=== PATIENT | female | born 1975 | race African-American/Black ===

== ENCOUNTER 2016-12-21 09:24 | Emergency (ER) | payer OTHER ==
[~2016-12-21] VITALS: Ht 162.6 cm; Wt 96.6 kg
--- NOTE | ~2016-12-21 | CT55 ---
[facility] A Service [facility] RADIOLOGY TEXT RESULTS PATIENT: ANGELITA GUTIERREZ LOCATION: [facility] : 71 UNIT #: [id number] AGE: [address]: Tressa Bhatia MD SEX: F ORDER DR: [id number] [place] [id number] [facility]. [place], [place] [address] [id number] E MR#: [id number] Acc #: [id number] NAME: ANGELITA GUTIERREZ. : 1975 SEX: F STUDY DATE/TIME: 12/21/2016 13:57 UNIT: [facility] ROOM: STUDY DESCRIPTION: CT Chest W Con Attending Physician: Tressa Bhatia M.D. Ordering Physician: Tressa Bhatia M.D. Primary Care Physician: No Primary Care Physician MEDICAL IMAGING REPORT This report is preliminary unless electronic signature is present EXAM CT chest with contrast HISTORY Back pain for 2 months with nausea TECHNIQUE The patient was given 100 cc of Isovue 370. Axial 5 mm images were obtained in the chest. This CT exam was performed with one or more of the following radiation dose reduction techniques: automatic exposure control, adjustment of mA and/or kV according to patient size, and iterative reconstruction. FINDINGS The visualized thyroid gland is normal. The aorta is normal in size. The heart is normal in size. There is no mediastinal or hilar adenopathy. The bones are unremarkable. The lungs are clear. IMPRESSION Normal CT scan of the chest with contrast. Dictated by... Hi Roy M.D. THIS IS AN ELECTRONICALLY VERIFIED REPORT Hi Roy M.D. at 12/22/2016 6:07 AM CHERYL/khadijah [facility] A [facility] RADIOLOGY TEXT RESULTS PATIENT: ANGELITA GUTIERREZ LOCATION: [facility] : 71 UNIT #: [id number] AGE: [address]: Tressa Bhatia MD SEX: F ORDER DR: TD: 12/21/2016 19:43 JOB #: [id number] MEDICAL IMAGING REPORT Page 1 of 1 COPY
--- NOTE | ~2016-12-21 | CT2 ---
[facility] A Service [facility] RADIOLOGY TEXT RESULTS PATIENT: ANGELITA GUTIERREZ LOCATION: [facility] : 73 UNIT #: [id number] AGE: [address]: Tressa Bhatia MD SEX: F ORDER DR: [id number] [facility] [address]. [place], [place] [address] [id number] E MR#: [id number] Acc #: [id number] NAME: ANGELITA GUTIERREZ. : 1975 SEX: F STUDY DATE/TIME: 12/21/2016 12:29 UNIT: [facility] ROOM: STUDY DESCRIPTION: CT Abd and Pelv W Cont Attending Physician: Tressa Bhatia M.D. Ordering Physician: Tressa Bhatia M.D. Primary Care Physician: No Primary Care Physician MEDICAL IMAGING REPORT This report is preliminary unless electronic signature is present EXAM CT scan of the abdomen and pelvis with contrast. INDICATIONS Back pain, electrical vagina pain, nausea for 2 months. COMPARISON There is no comparison. TECHNIQUE The patient was given 100 mL of Isovue-370 and axial 5 mm images were obtained through the abdomen and pelvis. This CT exam was performed with one or more of the following radiation dose reduction techniques: automatic exposure control, adjustment of mA and/or kV according to patient size, and iterative reconstruction. FINDINGS The lung bases are clear. The liver, gallbladder, spleen, pancreas, adrenal glands and kidneys are normal. The aorta is normal in size, and there is no adenopathy. The bowel including the appendix is normal. The uterus and adnexal regions in the bladder are normal. The bones show mild degenerative change in the lumbar spine. IMPRESSION 1. Mild degenerative change in the lumbar spine. 2. Otherwise, normal study. Normal appendix. Dictated by... Hi Roy M.D. [facility] A [facility] RADIOLOGY TEXT RESULTS PATIENT: ANGELITA GUTIERREZ LOCATION: [facility] : 71 UNIT #: [id number] AGE: [address]: Tressa Bhatia MD SEX: F ORDER DR: THIS IS AN ELECTRONICALLY VERIFIED REPORT Hi Roy M.D. at 12/22/2016 6:07 AM CHERYL/gregor TD: 12/21/2016 20:16 JOB #: [id number] MEDICAL IMAGING REPORT Page 1 of 1 COPY
--- NOTE | ~2016-12-21 | CR72 ---
[facility] A Service of [facility] RADIOLOGY TEXT RESULTS PATIENT: ANGELITA GUTIERREZ LOCATION: [facility] : 71 UNIT #: [id number] AGE: [address]: Tressa Bhatia MD SEX: F ORDER DR: [id number] [facility] [address] [facility] [place] [facility]. [place], [place] [address] [id number] E MR#: [id number] Acc #: [id number] NAME: ANGELITA GUTIERREZ : 1975 SEX: F STUDY DATE/TIME: 12/21/2016 10:44 UNIT: [facility] ROOM: STUDY DESCRIPTION: CR Chest Single View Portable Attending Physician: Tressa Bhatia M.D. Ordering Physician: Tressa Bhatia M.D. Primary Care Physician: Primary Care Physician No MEDICAL IMAGING REPORT This report is preliminary unless electronic signature is present EXAM Portable chest, 12/21/2016 HISTORY 41-year-old woman, short of air, dizziness, symptoms noted this a.m. History of high blood pressure. COMPARISON Chest, 06/23/2008 FINDINGS AP portable upright chest demonstrates a striking interim change in chest findings. Cardiac enlargement and generalized aortic dilatation now present. There is mild vascular congestion with some cephalization of pulmonary venous distribution. I see no infiltrates and no indication of effusion. Interim weight gain with large body habitus. IMPRESSION 1. Cardiomyopathy suspect. 2. Generalized thoracic aortic dilatation warrants further investigation. 3. Low lung volumes with mild vascular congestion. Dictated by... Radhames Estrada M.D. THIS IS AN ELECTRONICALLY VERIFIED REPORT Radhames Estrada M.D. at 12/21/2016 1:56 PM ROHIT/urban TD: 12/21/2016 12:18 JOB #: [id number] [facility] A Service [facility] RADIOLOGY TEXT RESULTS PATIENT: ANGELITA GUTIERREZ LOCATION: [facility] : 71 UNIT #: [id number] AGE: [address]: Tressa Bhatia MD SEX: F ORDER DR: MEDICAL IMAGING REPORT Page 1 of 1 COPY
--- NOTE | ~2016-12-21 | EKG ---
PATIENT: ANGELITA GUTIERREZ UNIT #: [id number] Ventricular Rate: 64 BPM Atrial Rate: 64 BPM P-R Interval: 178 ms QRS Duration: 68 ms Q-T Interval: 422 ms QTC Calculation(Bezet): 435 ms P Brewster: 20 degrees Calculated R Brewster: 3 degrees Calculated T Brewster: -5 degrees Diagnosis Line: Normal sinus rhythm Diagnosis Line: Normal ECG Diagnosis Line: No previous ECGs available Diagnosis Line: Confirmed by JOSÉ MIGUEL QUINONES MD ([id number]) on 12/22/2016 Diagnosis Line: 8:34:45 AM INTERPRETING MD: JONI COOK
[~2016-12-21 09:24] MED LIST: CIPRO PO; LISINOPRIL10 MG PO; TRIAMTERENE/HCTZ PO
[2016-12-21 12:11] LABS: BASOPHIL% 0.5 % (0-2.5); DIFF IND YES; EOSINOPHIL% 0.4 % (0.0-7.0); HEMATOCRIT 27.1 % (35.0-45.0); HEMOGLOBIN 7.8 gm/dL (12.0-16.0); LYMPHOCYTE# 1.5 X10e3 (1.0-3.5); LYMPHOCYTE% 21.2 % (17.0-45.0); MEAN CELL VOLUME 62.7 FL (83-96); MEAN CORPUSCULAR HEMOGLOBIN 18.1 PG (28-34); MEAN CORPUSCULAR HGB CONC 28.9 g/dL (30-36); MEAN PLATELET VOLUME 8.2 FL (6.5-11.5); MONOCYTE# 0.5 X10e3 (0-1.0); MONOCYTE% 6.5 % (3.0-12.0); NEUTROPHIL# 5.2 X10e3 (1.5-7.1); NEUTROPHIL% 71.4 % (40-75); PLATELET COUNT 381 X10e3 (140-420); RED BLOOD COUNT 4.33 X10e (3.90-5.30); RED CELL DISTRIBUTION WIDTH 18.2 % (11.0-15.5); WHITE BLOOD COUNT 7.2 X10e3 (4.0-10.5)
[2016-12-21 12:28] LABS: ANISOCYTOSIS MOD; PLATELET ESTIMATE NORMAL (NORMAL)
[2016-12-21 12:29] LABS: ELLIPTOCYTES PRESENT; MICROCYTOSIS MOD; SCHISTOCYTES PRESENT
[2016-12-21 12:37] LABS: BILIRUBIN, DIRECT 0.1 mg/dL (0.0-0.2); BILIRUBIN,INDIRECT 0.8 mg/dL (0.0-0.9); BILIRUBIN,TOTAL 0.9 mg/dL (0.2-2.0); BUN/CREATININE RATIO 7.5; CREATININE SERUM 0.8 mg/dL (0.6-1.4); GLOM FILT RATE Estimated 104.7 mL/min (>60); POTASSIUM 4.1 mmol/L (3.5-5.1); PROTEIN TOTAL SERUM 8.1 g/dL (6.0-8.3)
== END 2016-12-21 16:25 | disposition home or self-care (01) ==
LOC: CED 09:24
PROVIDERS: Emergency Medicine
DX: R42 Dizziness and giddiness (principal); D64.9 Anemia, unspecified; I10 Essential (primary) hypertension
CPT/HCPCS: 36415; 71010; 71260; 74177; 80048; 80076; 82947; 84703; 85025; 93005; 96374; 99285; J1100; Q9967

== ENCOUNTER → 2016-12-27 | Outpatient (CLI) | payer OTHER ==
[2016-12-27 11:11] LABS: HEMATOCRIT 29.5 % (35.0-45.0); HEMOGLOBIN 8.6 gm/dL (12.0-16.0); MEAN CELL VOLUME 64.7 FL (83-96); MEAN CORPUSCULAR HEMOGLOBIN 18.9 PG (28-34); MEAN CORPUSCULAR HGB CONC 29.3 g/dL (30-36); RED BLOOD COUNT 4.56 X10e (3.90-5.30); RED CELL DISTRIBUTION WIDTH 18.3 % (11.0-15.5); WHITE BLOOD COUNT 8.4 X10e3 (4.0-10.5)
== END | disposition home or self-care (01) ==
LOC: CBAR 10:03
PROVIDERS: Nurse Practitioner
DX: D64.9 Anemia, unspecified (principal); N92.0 Excessive and frequent menstruation with regular cycle; I10 Essential (primary) hypertension; H81.10 Benign paroxysmal vertigo, unspecified ear; E66.9 Obesity, unspecified; Z68.36 Body mass index [BMI] 36.0-36.9, adult
CPT/HCPCS: 85027

== ENCOUNTER 2017-02-05 12:45 | Emergency (ER) | payer OTHER ==
[~2017-02-05] VITALS: Ht 162.6 cm; Wt 104.3 kg
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
== END 2017-02-05 14:45 | disposition home or self-care (01) ==
LOC: CED 12:45 → CFTX 12:45
DX: S13.4XXA Sprain of ligaments of cervical spine, initial encounter (principal); S33.5XXA Sprain of ligaments of lumbar spine, initial encounter; S70.12XA Contusion of left thigh, initial encounter; I10 Essential (primary) hypertension; V49.40XA Driver injured in collision with unspecified motor vehicles in traffic accident, initial encounter; Y92.410 Unspecified street and highway as the place of occurrence of the external cause
CPT/HCPCS: 72040; 72072; 72100; 73552; 99284